=== PATIENT | male | born 1955 | race African-American/Black ===

== ENCOUNTER 2016-05-03 00:39 | Emergency (ER) | payer OTHER, MEDICAID ==
[~2016-05-03] VITALS: Ht 182.9 cm; Wt 117.9 kg
[~2016-05-03 00:39] MED LIST: ALBU8.5H8 INH; APRODINE PO; ASA81 PO; BENA1TAB2 PO; IBUP-1479 PO; SIMV10TA2 PO; TAMS-11 PO
--- NOTE | 2016-05-03 00:42 | NUR ---
Patient to ER bed 7 to gown for evaluation. Side rails up. Report given to Will RUGGIERO.
[2016-05-03 00:45] VITALS: BP 153/89; PULSE 89; RESP 17; TEMP 97.6; O2SAT 97
--- NOTE | 2016-05-03 00:50 | NUR ---
Pt presents to ED with c/o bilateral eye redness, watery, itchy x2 days. Pt stated that his nephew had pinkeye and he's afraid that he got pink eyes. A&Ox4, denies SOB or chestpain, denies N/V/D. Skin intact. No change in vision. Will continue to monitor
--- NOTE | 2016-05-03 00:53 | NUR ---
ER at bedside examining patient.
[2016-05-03 01:49] VITALS: BP 148/88; PULSE 90; RESP 17; TEMP 97.6; O2SAT 98
--- NOTE | 2016-05-03 01:49 | NUR ---
Patient given written and verbal discharge instructions and verbalizes understanding. ER MD discussed with patient the results and treatment provided. Patient in stable condition. ID arm band removed. Rx of Tobramycin 0.3% ophthalmic solution and tylenol with codeine no.3 given. Patient educated on pain management and to follow up with PMD. Pain Scale 0/10. Opportunity for questions provided and answered.
== END 2016-05-03 01:49 | disposition home or self-care (01) ==
LOC: SED 00:39
DX: H10.9 Unspecified conjunctivitis (principal); J44.9 Chronic obstructive pulmonary disease, unspecified; I10 Essential (primary) hypertension; N40.0 Benign prostatic hyperplasia without lower urinary tract symptoms; Z88.1 Allergy status to other antibiotic agents; Z79.82 Long term (current) use of aspirin
CPT/HCPCS: 99283

== ENCOUNTER 2017-03-10 10:39 | Emergency (ER) | payer OTHER, MEDICAID ==
[~2017-03-10] VITALS: Ht 182.9 cm; Wt 116.6 kg
[2017-03-10 10:40] VITALS: BP_SYST 115
[2017-03-10] MEDS: IPRATROPIUM/ALBUTEROL SULFATE 3 ML AMPUL.NEB INH ONE (11:20)
--- NOTE | 2017-03-10 11:30 | NUR ---
Patient to ER bed 4 to gown for evaluation. Side rails up. Report RECEIVED REPORT FROM TEDDY RUGGIERO.
[2017-03-10] MEDS: NACL 0.9% 1,000 ML IV ONE (11:31)
[2017-03-10] MEDS: KETOROLAC TROMETHAMINE 30 MG VIAL IVP ONE (11:31)
--- NOTE | 2017-03-10 11:35 | NUR ---
PT PRESENTS TO ED C/O PEYMAN,CONGEESTION AND HEMATURIA. PT AAOX 4, COUGH NOTED.
[2017-03-10 11:38] LABS: BASOPHILS # (AUTO) 0.3 K/uL (0.0-0.2); BASOPHILS % (AUTO) 4.1 % (0.0-2.0); EOSINOPHILS % (AUTO) 0.6 % (0.0-4.0); HEMATOCRIT 49.5 % (36-54); LYMPHOCYTES # (AUTO) 2.3 K/uL (1.0-5.5); LYMPHOCYTES % (AUTO) 28.1 % (20.5-51.5); MEAN CORPUSCULAR HEMOGLOBIN 27 pg (27-31); MEAN CORPUSCULAR HGB CONC 30 % (32-36); MEAN CORPUSCULAR VOLUME 88 fL (79.0-98.0); MONOCYTES # (AUTO) 0.5 K/uL (0.0-1.0); MONOCYTES % (AUTO) 6.6 % (1.7-9.3); NEUTROPHILS % (AUTO) 60.6 % (40.0-70.0); PLATELET COUNT (AUTO) 244 K/uL (130-430); RED CELL DISTRIBUTION WIDTH 13.3 % (9.0-15.0); WHITE BLOOD COUNT (AUTO) 8.1 K/uL (4.8-10.8)
--- NOTE | 2017-03-10 11:38 | NUR ---
ER at bedside examining patient.
--- NOTE | 2017-03-10 12:00 | NUR ---
Patient transported to radiology via GURNEY, accompanied by RAD STAFF.
[2017-03-10 12:03] LABS: CALCIUM 9.2 mg/dL (8.4-11.0); CREATININE 1.55 mg/dL (0.55-1.30); POTASSIUM 3.6 mmol/L (3.5-5.1)
[2017-03-10 12:08] LABS: ALBUMIN 4.1 g/dL (3.4-4.8); TOTAL BILIRUBIN 0.3 mg/dL (0.0-1.0)
--- NOTE | 2017-03-10 12:15 | NUR ---
Returned from radiology, back to [facility].
--- NOTE | 2017-03-10 12:30 | NUR ---
PT TOLERATED MEDICATION AND IVF WELL, CONTINUING TO MONITOR.
[2017-03-10 13:01] LABS: BILIRUBIN,URINE NEGATIVE (NEGATIVE); BLOOD, URINE 2+ (NEGATIVE); CLARITY/URINE CLEAR (CLEAR); COLOR,URINE YELLOW (YELLOW); GLUCOSE,URINE NEGATIVE (NEGATIVE); KETONES,URINE TRACE (NEGATIVE); LEUKOCYTE ESTERASE ,URINE NEGATIVE (NEGATIVE); NITRITE, URINE NEGATIVE (NEGATIVE); PROTEIN URINE TRACE (NEGATIVE)
[2017-03-10 13:18] LABS: BACTERIA,URINE RARE /HPF (None Seen); MUCUS,URINE 1+ /LPF (None Seen); WBC,URINE 0-3 /HPF (0-3)
[2017-03-10 13:19] VITALS: BP_SYST 120
--- NOTE | 2017-03-10 13:19 | NUR ---
Patient given written and verbal discharge instructions and verbalizes understanding. ER MD discussed with patient the results and treatment provided. Patient in stable condition. ID arm band removed. IV catheter removed intact and dressing applied, no active bleeding. Rx of TRAMADOL,ALBUTEROL INH,ZOFRAN,ATROVENT given. Patient educated on pain management and to follow up with PMD. Pain Scale 0. Opportunity for questions provided and answered.
== END 2017-03-10 13:19 | disposition home or self-care (01) ==
LOC: SED 10:39
DX: K52.9 Noninfective gastroenteritis and colitis, unspecified (principal); J09.X2 Influenza due to identified novel influenza A virus with other respiratory manifestations; J44.9 Chronic obstructive pulmonary disease, unspecified; I10 Essential (primary) hypertension; N40.0 Benign prostatic hyperplasia without lower urinary tract symptoms; Z88.1 Allergy status to other antibiotic agents
CPT/HCPCS: 36415; 74176; 80053; 81000; 85025; 86710; 94640; 96361; 96374; 99285; J1885; J7030

== ENCOUNTER 2019-04-14 20:22 | Emergency (ER) | payer OTHER, MEDICAID ==
[~2019-04-14] VITALS: Ht 185.4 cm; Wt 115.2 kg
[~2019-04-14 20:22] MED LIST changes: -IBUP-1479 PO; +IBUP-2018 PO
[2019-04-14 20:26] VITALS: BP_SYST 150
[2019-04-14] MEDS ORDERED: MORPHINE 4 MG/ML INJ. SYRINGE IM ONE (21:30)
[2019-04-14 21:40] LABS: BASOPHILS # (AUTO) 0.1 K/uL (0.0-0.2); BASOPHILS % (AUTO) 1.1 % (0.0-2.0); EOSINOPHILS # (AUTO) 0.2 K/uL (0.0-0.4); EOSINOPHILS % (AUTO) 2.2 % (0.0-4.0); HEMATOCRIT 42.5 % (36-54); HEMOGLOBIN 13.8 g/dL (14.0-18.0); LYMPHOCYTES # (AUTO) 4.2 K/uL (1.0-5.5); LYMPHOCYTES % (AUTO) 38.3 % (20.5-51.5); MEAN CORPUSCULAR HEMOGLOBIN 28 pg (27-31); MEAN CORPUSCULAR HGB CONC 32 % (32-36); MEAN CORPUSCULAR VOLUME 87 fL (79.0-98.0); MONOCYTES # (AUTO) 0.6 K/uL (0.0-1.0); MONOCYTES % (AUTO) 5.6 % (1.7-9.3); NEUTROPHILS # (AUTO) 5.7 K/uL (1.8-7.7); NEUTROPHILS % (AUTO) 52.8 % (40.0-70.0); PLATELET COUNT (AUTO) 292 K/uL (130-430); RED BLOOD CELL COUNT(AUTO) 4.89 MIL/uL (4.2-6.2); RED CELL DISTRIBUTION WIDTH 14.5 % (9.0-15.0); WHITE BLOOD COUNT (AUTO) 10.8 K/uL (4.8-10.8)
[2019-04-14 22:34] LABS: CALCIUM 8.9 mg/dL (8.4-11.0); CREATININE 0.96 mg/dL (0.55-1.30); POTASSIUM 3.8 mmol/L (3.5-5.1)
[2019-04-14 22:40] LABS: ALBUMIN 3.7 g/dL (3.4-4.8); TOTAL BILIRUBIN 0.2 mg/dL (0.0-1.0)
[2019-04-15] MEDS ORDERED: CYCLOBENZAPRINE HCL 10 MG TABLET (FLEXERIL) PO ONE (00:45)
[2019-04-15] MEDS ORDERED: KETOROLAC TROMETHAMINE 60 MG/2 ML VIAL IM ONE (00:45)
[2019-04-15 02:15] VITALS: BP_SYST 149
== END 2019-04-15 02:15 | disposition home or self-care (01) ==
LOC: SED 20:22
DX: M25.512 Pain in left shoulder (principal); J44.9 Chronic obstructive pulmonary disease, unspecified; I10 Essential (primary) hypertension; N40.0 Benign prostatic hyperplasia without lower urinary tract symptoms; Z79.899 Other long term (current) drug therapy; Z79.82 Long term (current) use of aspirin; Z88.1 Allergy status to other antibiotic agents
CPT/HCPCS: 36415; 71045; 73030; 80053; 82550; 84484; 85025; 93005; 96372 ×2; 99285; J1885; J2270

== ENCOUNTER 2021-03-08 15:09 | Emergency (ER) | payer OTHER, MEDICAID, SELFPAY ==
[~2021-03-08] VITALS: Ht 182.9 cm; Wt 111.6 kg
[2021-03-08 15:45] VITALS: BP_SYST 152
--- NOTE | 2021-03-08 15:45 | NUR ---
Pt to remain in the ER tent until ER bed becomes available.
--- NOTE | 2021-03-08 16:00 | NUR ---
Pt AAO and ambulatory reporting worsening flu-like s/s, fever, sob, bodyaches and chills.
--- NOTE | 2021-03-08 16:49 | NUR ---
Swabbed for [place] & PCR. Sent to lab. He's waiting in his car.
--- NOTE | 2021-03-08 16:50 | NUR ---
Covid swab obtained and sent to lab for analysis.
--- NOTE | 2021-03-08 18:00 | NUR ---
PT AWAITING DISPOSITION, RESTING QUIETLY IN NO DISTRESS.
[2021-03-08] MEDS ORDERED: DEXT118L21 PO (18:37)
[2021-03-08] MEDS ORDERED: PSEU120T56 PO (18:37)
[2021-03-08 19:07] VITALS: BP_SYST 152
--- NOTE | 2021-03-08 19:07 | NUR ---
Patient given written and verbal discharge instructions and verbalizes understanding. DR. ANNE BRINK MD discussed with patient the results and treatment provided. Patient in stable condition. ID arm band removed. Patient educated on pain management and to follow up with PMD. Pain Scale 0/10. Opportunity for questions provided and answered.
== END 2021-03-08 19:07 | disposition home or self-care (01) ==
LOC: SED 15:09
DX: U07.1 COVID-19 (principal); I10 Essential (primary) hypertension; J44.9 Chronic obstructive pulmonary disease, unspecified; Z88.1 Allergy status to other antibiotic agents; Z79.899 Other long term (current) drug therapy
CPT/HCPCS: 87426; 99283; U0003

== ENCOUNTER 2021-09-15 12:54 | Emergency (ER) | payer OTHER, MEDICAID ==
[~2021-09-15] VITALS: Ht 182.9 cm; Wt 112.5 kg
[~2021-09-15 12:54] MED LIST changes: +DEXT118L21 PO; +PSEU120T56 PO
[2021-09-15 13:10] VITALS: BP_SYST 162
--- NOTE | 2021-09-15 13:12 | NUR ---
Patient triaged and placed in waiting room. VSS and patient appears in no acute distress at this time. Accompanied by self, awaiting available bed, and MD notified of need for MSE.
[2021-09-15 14:21] LABS: BASOPHILS # (AUTO) 0.1 K/uL (0.0-0.2); BASOPHILS % (AUTO) 0.9 % (0.0-2.0); EOSINOPHILS # (AUTO) 0.2 K/uL (0.0-0.4); EOSINOPHILS % (AUTO) 3.1 % (0.0-4.0); HEMATOCRIT 40.7 % (36-54); HEMOGLOBIN 13.2 g/dL (14.0-18.0); LYMPHOCYTES % (AUTO) 28.4 % (20.5-51.5); MEAN CORPUSCULAR HEMOGLOBIN 27 pg (27-31); MEAN CORPUSCULAR HGB CONC 32 % (32-36); MEAN CORPUSCULAR VOLUME 84 fL (79.0-98.0); MONOCYTES # (AUTO) 0.4 K/uL (0.0-1.0); MONOCYTES % (AUTO) 5.6 % (1.7-9.3); NEUTROPHILS # (AUTO) 4.4 K/uL (1.8-7.7); PLATELET COUNT (AUTO) 259 K/uL (130-430); RED BLOOD CELL COUNT(AUTO) 4.82 MIL/uL (4.2-6.2); RED CELL DISTRIBUTION WIDTH 14.2 % (9.0-15.0); WHITE BLOOD COUNT (AUTO) 7.1 K/uL (4.8-10.8)
[2021-09-15 14:26] LABS: ANION GAP 7 (5-15); CHLORIDE 104 mmol/L (98-107); CREATININE 1.28 mg/dL (0.55-1.30); GLUCOSE 144 mg/dL (70-99); POTASSIUM 3.8 mmol/L (3.5-5.1); SODIUM SERUM 139 mmol/L (136-145); UREA NITROGEN, BLOOD 15 mg/dL (8-21)
[2021-09-15 14:27] LABS: GFR AFRICAN AMERICAN 73 mL/min (>90); PROTHROMBIN TIME 10.6 SECS (9.5-12.5)
[2021-09-15 14:37] LABS: ALANINE AMINOTRANSFERASE 14 U/L (12-78); ALBUMIN 3.6 g/dL (3.4-4.8); ASPARTATE AMINOTRANSFERASE 9 U/L (10-37); TOTAL BILIRUBIN 0.5 mg/dL (0.0-1.0)
[2021-09-15] MEDS ORDERED: iohexoL 350 mgI/mL, 100 ML INFUS..BTL IV ONE (16:18)
--- NOTE | 2021-09-15 16:33 | NUR ---
Patient to ER bed 04 to gown for evaluation. Side rails up.
--- NOTE | 2021-09-15 16:55 | NUR ---
TO CT scan.
[2021-09-15] MEDS ORDERED: TETRACAINE HCL/PF 0.5% OPHTHALMIC DROPS 4 ML OP ONE (18:00)
--- NOTE | 2021-09-15 21:00 | NUR ---
DR RODRÍGUEZ AT BEDSIDE PERFORMING PROCEDURE.
--- NOTE | 2021-09-15 22:39 | NUR ---
Patient given written and verbal discharge instructions and verbalizes understanding. ER MD discussed with patient the results and treatment provided. Patient in stable condition. ID arm band removed. Rx of NONE given. Patient educated on pain management and to follow up with PMD. Pain Scale 0/10. Opportunity for questions provided and answered. Medication side effect fact sheet provided.
== END 2021-09-15 22:39 | disposition home or self-care (01) ==
LOC: SED 12:54
DX: R73.9 Hyperglycemia, unspecified (principal); H53.8 Other visual disturbances; R07.9 Chest pain, unspecified; J44.9 Chronic obstructive pulmonary disease, unspecified; I10 Essential (primary) hypertension; Z88.1 Allergy status to other antibiotic agents; Z79.899 Other long term (current) drug therapy
CPT/HCPCS: 99285; 70496; 71046; 80053; 85025; 85610; 84484; 36415; 93005; 70498; 70450; 76376; Q9967